=== PATIENT | female | born 1970 | race Hispanic/Latino ===

== ENCOUNTER 2020-06-11 14:46 | Inpatient (IN) | payer OTHER ==
[~2020-06-11] VITALS: Ht 170.2 cm; Wt 104.3 kg
[~2020-06-11 14:46] MED LIST: IRON27 MG PO; OMECLAMOX-PAK1 EACH
--- NOTE | 2020-06-11 15:28 | Emergency Department Note ---
History of Present Illnes History of Present Illness Chief Complaint: Abdominal Complaints History of Present Illness This is a 50 year old female arrived to the ED for several weeks of abdominal pain and diarrhea.. Chief Complaint Comment PATIENT IN FROM HOME WITH COMPLAINTS OF EPIGASTRIC PAIN, NAUSEA, AND DIARRHEA FOR SEVERAL WEEKS. PATIENT STATES SHE WAS SEEN AT [facility] 2 DAYS AGO AND HAD LABS AND XRAYS AND EVERYTHING WAS NORMAL. STATES MD TOLD HER SHE HAS IBS. PATIENT HAD AN EGD 3 WEEKS AGO AND TOLD SHE HAD A HIATAL HERNIA. PATIENT HAS NOT MEDICATED FOR THE DIARRHEA. PATIENT ALERT AND ORIENTED, RESP EVEN AND NONLABORED, APPEARS IN NO DISTRESS, AMBULATORY WITHOUT ASSISTANCE Historian: Patient Arrival Mode: Car Onset (how long ago): day(s) Onset quality: gradual Duration (how long): day(s) Timing of current episode: constant Progression: worsening Chronicity: new Associated symptoms: Reports nausea/vomiting Past Medical/Family History Physician Review I have reviewed the patient's past medical and family history. Any updates have been documented here. Past Medical History Recent Fever: Yes Clinical Suspicion of Infectio: No New/Unexplained Change in Ment: No Other Medical History: H.pylori Other Last Tetanus: 8 YEARS AGO Review of Systems Review of Systems Constitutional: Reports no symptoms EENTM: Reports no symptoms Cardiovascular: Reports no symptoms Respiratory: Reports no symptoms Gastrointestinal: Reports as per HPI, Reports abdominal pain, Reports nausea, Reports vomiting Genitourinary: Reports no symptoms Musculoskeletal: Reports no symptoms Integumentary: Reports no symptoms Neurological: Reports no symptoms Psychological: Reports no symptoms Endocrine: Reports no symptoms Hematological/Lymphatic: Reports no symptoms Physical Exam Related Data Allergies: Coded Allergies: No Known Allergies (Verified , 11/26/09) Triage Vital Signs Vital Signs Date Time Temp Pulse Resp B/P (MAP) Pulse Ox O2 Delivery O2 Flow Rate FiO2 06/11/20 14:57 99.1 83 20 122/94 100 Room Air Vital signs reviewed: Yes Physical Exam CONSTITUTIONAL Constitutional: Present well-developed, Present well-nourished HENT HENT: Present normocephalic, Present atraumatic, Present oropharynx clear/moist, Present nose normal HENT L/R: Present left ext ear normal, Present right ext ear normal EYES Eyes: Reports PERRL, Reports conjunctivae normal NECK Neck: Present ROM normal PULMONARY Pulmonary: Present effort normal, Present breath sounds normal CARDIOVASCULAR Cardiovascular: Present regular rhythm, Present heart sounds normal, Present capillary refill normal, Present normal rate GASTROINTESTINAL Abdominal: Present soft, Present bowel sounds normal, Present tender GENITOURINARY Genitourinary: Present exam deferred SKIN Skin: Present warm, Present dry MUSCULOSKELETAL Musculoskeletal: Present ROM normal NEUROLOGICAL Neurological: Present alert, Present oriented x 3, Present no gross motor or sensory deficits PSYCHOLOGICAL Psychological: Present mood/affect normal, Present judgement normal Results Laboratory Lab results reviewed: Yes Laboratory comments Laboratory Tests Test 06/11/20 15:20 06/11/20 15:03 White Blood Count 3.19 x10e3/uL (4.8-10.8) Red Blood Count 4.69 x10e6/uL (3.6-5.1) Hemoglobin 11.3 g/dL (12.0-16.0) Hematocrit 36.4 % (34.2-44.1) Mean Corpuscular Volume 77.6 fL (81-99) Mean Corpuscular Hemoglobin 24.1 pg (28-32) Mean Corpuscular Hemoglobin Concent 31.0 g/dL (31-35) Red Cell Distribution Width 15.2 % (11.7-14.4) Platelet Count 294 x10e3/uL (140-360) Neutrophils (%) (Auto) 54.2 % (38.7-80.0) Lymphocytes (%) (Auto) 33.9 % (18.0-39.1) Monocytes (%) (Auto) 11.3 % (4.4-11.3) Eosinophils (%) (Auto) 0.3 % (0.0-6.0) Basophils (%) (Auto) 0.3 % (0.0-1.0) Neutrophils # (Auto) 1.7 (2.1-6.9) Lymphocytes # (Auto) 1.1 (1.0-3.2) Monocytes # (Auto) 0.4 (0.2-0.8) Eosinophils # (Auto) 0.0 (0.0-0.4) Basophils # (Auto) 0.0 (0.0-0.1) Absolute Immature Granulocyte (auto 0 x10e3/uL (0-0.1) Sodium Level 138 mmol/L (136-145) Potassium Level 3.8 mmol/L (3.5-5.1) Chloride Level 99 mmol/L (98-107) Carbon Dioxide Level 26 mmol/L (22-29) Anion Gap 16.8 mmol/L (8-16) Blood Urea Nitrogen 8 mg/dL (7-26) Creatinine 0.84 mg/dL (0.57-1.11) Estimat Glomerular Filtration Rate > 60 ML/MIN (60-) BUN/Creatinine Ratio 10 (6-25) Glucose Level 85 mg/dL (74-118) Calcium Level 8.0 mg/dL (8.4-10.2) Total Bilirubin 0.4 mg/dL (0.2-1.2) Aspartate Amino Transf (AST/SGOT) 31 IU/L (5-34) Alanine Aminotransferase (ALT/SGPT) 20 IU/L (0-55) Alkaline Phosphatase 111 IU/L (40-150) Creatine Kinase 138 IU/L (29-168) Creatine Kinase MB 0.50 ng/mL (0-5.0) Troponin I 0.002 ng/mL (0-0.300) Total Protein 7.7 g/dL (6.5-8.1) Albumin 3.4 g/dL (3.5-5.0) Globulin 4.3 g/dL (2.3-3.5) Albumin/Globulin Ratio 0.8 (0.8-2.0) Lipase 13 U/L (8-78) Urine Color Yellow (YELLOW) Urine Clarity Clear (CLEAR) Urine pH 6 (5 - 7) Urine Specific [place] 1.020 (1.010-1.025) Urine Protein Negative (NEGATIVE) Urine Glucose (UA) Negative (NEGATIVE) Urine Ketones 2+ (NEGATIVE) Urine Blood Negative (NEGATIVE) Urine Nitrite Negative (NEGATIVE) Urine Bilirubin Small (NEGATIVE) Urine Urobilinogen 0.2 mg/dL (0.2 - 1) Urine Leukocyte Esterase Negative (NEGATIVE) Urine RBC 0-5 /HPF (0-5) Urine WBC 0-5 /HPF (0-5) Urine Epithelial Cells Few /LPF (NONE) Urine Bacteria Rare /HPF (NONE) Urine Opiates Screen Negative (NEGATIVE) Urine Methadone Screen Negative (NEGATIVE) Urine Barbiturates Screen Negative (NEGATIVE) Urine Phencyclidine Screen Negative (NEGATIVE) Urine Amphetamines Screen Negative (NEGATIVE) Urine Methamphetamines Screen Negative (NEGATIVE) Urine Benzodiazepines Screen Negative (NEGATIVE) Urine Cocaine Screen Negative (NEGATIVE) Urine Cannabinoids Screen Negative (NEGATIVE) Imaging Imaging results reviewed: Yes Impressions IMPRESSION: 1. Patchy airspace opacities in the right lung base compatible with multifocal pneumonia. 2. No acute abdominopelvic abnormality identified. Signed by: Van Laws MD on 06/11/2020 5:16 PM Assessment & Plan Medical Decision Making MDM 50 yo F arrived to the ED with complaints of epigastric abdominal pain and inability to tolerate oral intake. Pt admitted for GI evaluation and monitoring. Assessment & Plan Final Impression: (1) Intractable vomiting (2) Pneumonia Last Vital Signs Date Time Temp Pulse Resp B/P (MAP) Pulse Ox O2 Delivery O2 Flow Rate FiO2 06/11/20 14:57 99.1 83 20 122/94 100 Room Air Home Meds Reported Medications Omeprazole/Clarith/Amoxicillin (OMECLAMOX-JACQUE COMBO PACK) 1 Each Combo..pkg 03/06/15 AYAD GRESHAM DO Jun 11, 2020 15:28
[2020-06-11 15:41] LABS: BASOPHILS % 0.3 % (0.0-1.0); EOSINOPHILS % 0.3 % (0.0-6.0); HEMATOCRIT 36.4 % (34.2-44.1); HEMOGLOBIN 11.3 g/dL (12.0-16.0); LYMPHOCYTES # (AUTO) 1.1 (1.0-3.2); LYMPHOCYTES % 33.9 % (18.0-39.1); MEAN CORPUSCULAR HEMOGLOBIN 24.1 pg (28-32); MEAN CORPUSCULAR VOLUME 77.6 fL (81-99); MONOCYTES # (AUTO) 0.4 (0.2-0.8); MONOCYTES % 11.3 % (4.4-11.3); NEUTROPHILS # (AUTO) 1.7 (2.1-6.9); NEUTROPHILS % 54.2 % (38.7-80.0); PLATELET COUNT 294 x10e3/uL (140-360); RED BLOOD COUNT 4.69 x10e6/uL (3.6-5.1); RED CELL DISTRIBUTION WIDTH 15.2 % (11.7-14.4)
--- OUTSIDE RECORDS SUMMARY | 2020-06-11 15:55 | XMS REPORT | Continuity of Care Document ---
Author Author [facility] t Organization [facility] Address [address] [place] [address] Phone Unavailable Care Team Providers Care Credit Portfolio Manager Name Role Phone Asked, Pcp No PCP Unavailable Killian Ozuna MD Payers Payer Name Policy Type Policy Number Effective Date Expiration Date S ource DEPT OF AFFAIRSDEPT OF AFFAIRSxxxxxxxxxx2020-PresentMilitary xxxxxxxxxx 2020 00:00:00 Otis Palmer Problems This patient has no known problems. Allergies, Adverse Reactions, Alerts This patient has no known allergies or adverse reactions. Social History Social Habit Start Date Stop Date Quantity Comments Source Sex Assigned At Pau kellogg Yazidi Medications This patient has no known medications. Vital Signs Vital Name Observation Time Observation Value Comments Source Body temperature 2020-06-09 17:02:00 37.33 Violeta Gay Palmer Systolic blood pressure 2020-06-09 15:47:00 132 mm[Hg] Otis Palmer Diastolic blood pressure 2020-06-09 15:47:00 74 mm[Hg] Otis Palmer Heart rate 2020-06-09 15:47:00 104 /min Otis Palmer Respiratory rate 2020-06-09 15:47:00 17 /min Gay Palmer Oxygen saturation in Arterial blood by Pulse oximetry 06-09 15:47:00 98 /min Otis Palmer Procedures Procedure Date / Time Performed Performing Clinician [facility] e CT ABDOMEN PELVIS WO CONTRAST 2020-06-09 14:47:50 Lupis Ozuna XR CHEST 1 VW PORTABLE 2020-06-09 13:11:15 Killian Ozuna ECG 12-LEAD 2020-06-09 12:59:12 Killian Ozuna HC COMPLETE BLD COUNT W/AUTO DIFF 2020-06-09 12:45:00 Anna Ozuna PROTHROMBIN TIME WITH INR 2020-06-09 12:45:00 Killian Ozuna PARTIAL THROMBOPLASTIN TIME (PTT) 2020-06-09 12:45:00 Anna Ozuna TROPONIN 2020-06-09 12:45:00 Killian Ozuna Met dorian B NATRIURETIC PEPTIDE 2020-06-09 12:45:00 Killian Ozuna on Yazidi LIPASE LEVEL 2020-06-09 12:45:00 Killian Ozuna Met dorian COMPREHENSIVE METABOLIC PANEL 2020-06-09 12:19:00 Lupis Ozuna ESTIMATED GFR 2020-06-09 12:19:00 Killian Ozuna Met dorian ECG ED PRELIMINARY INTERPRETATION 2020-06-09 12:07:40 Anna Ozuna Plan of Care Planned Activity Planned Date Details Comments Source Future Scheduled Test 2020-07-13 00:00:00 INFLUENZA VACCINE [code = INFLUENZA VACCINE] Otis Palmer Future Scheduled Test 1992 00:00:00 Screening for loreta gnant neoplasm of cervix (procedure) [code = 017104320] Otis womack Encounters Start Date/Time End Date/Time Encounter Type Admission Type Att[facility] Care Department Encounter ID Source 2020-06-09 00:00:00 2020-06-09 00:00:00 Emergency LUPIS OZUNA [facility] [id number] Otis Palmer Results Test Description Test Time Test Comments Results Result Comments Source ECG 12 lead 2020-06-09 20:16:38 Test Item Ventricular rate (test code = 253) 84 Atrial rate (test code = 255) 84 CO interval (test code = 266) 174 QRSD interval (test code = 260) 84 QT interval (test code = 264) 360 QTC interval (test code = 265) 425 P axis 1 (test code = 267) 66 QRS axis 1 (test code = 268) 15 T wave axis (test code = 270) 27 EKG impression (test code = 273) Normal sinus rhythm-N ormal ECG-No previous ECGs available- [facility] Abdomen Pelvis Wo [id number] 14:56:14Hm Interface, Radiology Results 06/09/2020 2:59 PM CDTEXAMINATION: CT ABDOMEN PELVIS WO CONTRASTCLINICAL HISTORY: Abd pain unspecifiedTECHNIQUE: Multiple axial images of the abdomen and pelvis were obtained without intravenous administration of iodinated contrast. Sagittal and coronal computerized reform atted images were also obtained. The lack of intravenous contrast reduces the se nsitivity of detecting solid organ disease.CT imaging was performed with iterati ve reconstruction techniques and/or automated exposure control to reduce radiati on dose.COMPARISON: 03/10/2015FINDINGS:1.Ill-defined nodular and groundglass clu stered opacities in the right lower lobe are most likely mild localized bronchio litis.2.The unenhanced liver, spleen, pancreas, and adrenals are normal. The gal lbladder is absent.3.A multilobulated 4.1 x 3.2 cm right renal mass is minimally larger in the interval and is most compatible with a mildly complex cyst. The l eft kidney is normal. There is no hydronephrosis or nephrolithiasis. Urinary jose a dder is empty but otherwise normal.4.The uterus and adnexa are unremarkable.5.No small or large bowel obstruction or inflammation is seen. A mobile cecum is dis placed in the left upper abdominal quadrant. The appendix is not definitely seen , but there are no inflammatory changes near the cecum. Stomach is normal.6.Ther e is no ascites or lymphadenopathy.7.No significant skeletal abnormality is seen .IMPRESSION:1.No acute abnormality in the abdomen or pelvis.2.Mild right lower l obe bronchiolitis. Recommend 2-3 month follow-up chest CT.3.Mild interval enlarg ement of a right renal mass, most likely a mildly hyperdense cyst. A follow-up r enal ultrasound or renal mass protocol CT can be obtained for confirmation.[facility]-2 [id number] MethodistB natriuretic [id number] 14:15:00* Test Item Value Reference Range Interpretation Comments BNP (test code = 81090-7) 13 pg/mL 0-100 [place] MethodistProthrombin time with [id number] 14:09:18* Test Item Value Reference Range Interpretation Comments Prothrombin time (test code = 5902-2) 15.0 11.5- 14.5 sec H INR (test code = 05172-3) 1.2 Th e International Normalized Ratio (INR) is a therapeutic monitoring tool for patients who are stable on oral anticoagulant therapy. An INR of 2.0-3.0 is suggested for deep vein thrombosis/pulmonary embolism. Lab Interpretation (test code = 33410-8) Abnormal [facility] MethodistComprehensive metabolic [id number] 13:57:43* Test Item Value Reference Range Interpretation Comments Sodium (test code = 2951-2) 138 135- 148 mEq/L Potassium (test code = 2823-3) 4.0 3.5- 5.0 mEq/L Chloride (test code = 5-0) 100 98- 112 mEq/L CO2 (test code = 2027-9) 24 24- 31 mEq/L Anion gap (test code = 31388-1) 14@ANIO 7- 15 mEq/L BUN (test code = 3094-0) 9 mg/dL 6-20 Creatinine (test code = 2160-0) 0.97 mg/dL 0.5-0.9 H Glucose (test code = 2345-7) 90 mg/dL 65-99 Calcium (test code = 93143-8) 8.3 mg/dL 8.3-10.2 Protein (test code = 2885-2) 8.0 g/dL 6.3-8.3 -[place] 4.6- 7.0 g/dL1 week 4.4-7.6 g/dL7 months-1year 5.1-7.3 g/dL1-2 years 5.6-7.5 g/dL>3 years 6.0-8.0 g/cH19-477 6.3-8.3 g/dL Albumin (test code = 1751-7) 3.3 g/dL 3.5-5 L A/G ratio (test code = 1759-0) 0.7 0.7-3.8 Alkaline phosphatase (test code = 6768-6) 115 U/L 35-104 H AST (test code = 1920-8) 38 U/L 10-35 H ALT (test code = 1742-6) 23 U/L 5-50 Total bilirubin (test code = 1974-) 0.4 mg/dL 0-1.2 Lab Interpretation (test code = 26563-7) Abnormal Ot[facility] MethodistEstimated [id number] 13:57:43* Test Item Value Reference Range Interpretation Comments Estimated GFR (test code = 5488) 68 mL/min/1.73 m2 Catergory Units InterpretationG1 >=90 Normal or highG2 60-89 Mildly mufgtklsmQ7t 45-59 Mildly to moderately qllfjaahnI8j 30-44 Moderately to severely decreasedG4 15-29 Severely decreasedG5 <15 Kidney failureThe eGFR was calculated using the Chronic Kidney Disease Epidemiology Collaboration (CKD-EPI) equation. Interpretation is based on recommendations of the National Kidney Foundation-Kidney Disease Outcomes Quality Initiative (NKF-KDOQI) published in 2014. Otis PalmerLnxxkincwNkxkzdyg9910-42-63 13:44:45* Test Item Value Reference Range Interpretation Comments Troponin (test code = 98151-9) <0.006 0-0.04 In patients suspected of having a myocardial infarction, along with all other appropriate clinical measures and actions including ECG and other diagnostics as appropriate, measure Ultra TnI at 0 hrs and at 3 hrs.Myocardial infarction VERY LIKELYThe 0 hr TnI level is > 0.10 ng/mL Jose cardial infarction LIKELYThe 0 hr TnI level is > 0.04 ng/mL and 3 hr level is increased or decreased by at least 0.020 ng/mL Myocardi al infarction VERY UNLIKELYBoth the 0 hr and 3 hr TnI levels <= 0.04 ng/mL(within normal limits) OR 0 hr is > 0.04 ng/mL and 3 hr is increased OR decreased by less than 0.020 ng/mL [place] MethodistPartial thromboplastin time, [id number] 13:43:27* Test Item Value Reference Range Interpretation Comments PTT (test code = 22657-2) 34.8 23.0- 36.0 sec PTT therapeutic range for unfractionated heparin is61.0-112.0 seconds which corresponds to Anti-Xa0.3-0.7 U/ml. [place] MethodistLipase [id number] 13:31:26* Test Item Value Reference Range Interpretation Comments Lipase (test code = 3040-3) 21 U/L 13-60 [place] MethodistCBC with platelet and [id number] 13:22:50* Test Item Value Reference Range Interpretation Comments WBC (test code = 83133-1) 4.14 4.50- 11.00 k/uL L RBC (test code = 46247-3) 4.36 m/uL 4.2-5.5 HGB (test code = 718-7) 10.8 g/dL 12-16 L HCT (test code = 4544-3) 34.4 % 37-47 L MCV (test code = 787-2) 78.9 fL 82-100 L MCH (test code = 785-6) 24.8 pg 27-34 L MCHC (test code = 786-4) 31.4 g/dL 31-37 RDW - SD (test code = 17199-0) 43.8 fL 37-55 MPV (test code = 62841-5) 9.7 fL 8.8-13.2 Platelet count (test code = 02221-6) 303 150- 400 k/uL Nucleated RBC (test code = 10104-6) 0.00 /100 WBC Neutrophils (test code = 77209-5) 72.5 % 39-69 H Lymphocytes (test code = 68798-3) 16.2 % 25-45 L Monocytes (test code = 95972-0) 10.9 % 0-10 H Eosinophils (test code = 91701-4) 0.0 % 0-5 Basophils (test code = 86673-0) 0.2 % 0-1 Immature granulocytes (test code = 81928-3) 0.2 % 0-1 "Immature granulocytes" (promyelocytes, myelocytes, metamyelocytes) Lab Interpretation (test code = 48788-7) Abnormal [facility] MethodistXR Chest 1 Vw [id number] 13:22:50Hm Interface, Radiology Results 06/09/2020 1:25 PM CDTEXAMINATION: XR CHEST 1 VW PORTABLECLINICAL HISTORY: 50 years Female chest painCOMPARISON: None.IMPRESSION:Lines and tubes: None.Heart and mediastinum: Cardiomediastinal silhouette is normal in contour.Lungs and pleura: There is no focal airspace dis ease, pleural effusion or pneumothorax.Bones: No acute abnormality.[facility]-[id number] 4Dictated and approved by microarray operations vice president/fellow: Saúl Mahmood M.D.I, Kayla Mohr MD, personally reviewed the images and resident's/fellow's findings and agree with the final report.[facility] [place] Interpretation - Not an [id number] 12:07:40ShiKillian jones MD 06/10/2020 6:58 [facility] [place] [facility] Preliminary Interpretation - Not an OrderPerformed by: Killian Ozuna MDAuthorized by: Killian Ozuna MD ECG reviewed by ED Physician in the absence of a nuclear criticality safety engineer: yes Interpretation: Interpretation: normal Rate: ECG rate: 84 ECG rate assessment: normal Rhythm: Rhythm: sinus rhythm Ectopy: Ectopy: none QRS: QRS axis: Normal QRS intervals: NormalConduction: Conduction: normal ST segments: ST segments: NormalT waves: T waves: normal Otis Palmer
--- OUTSIDE RECORDS SUMMARY | 2020-06-11 15:55 | XMS REPORT | Clinical Summary ---
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 Last Filed Vital Signs Reading Time Taken Comments Vital Sign 132/74 06/09/2020 3:47 PM CDT Blood Pressure 104 06/09/2020 3:47 PM CDT Pulse 37.3 C (99.2 F) 06/09/2020 5:02 PM CDT Temperature 17 06/09/2020 3:47 PM CDT Respiratory Rate 98% 06/09/2020 3:47 PM CDT Oxygen Saturation - - Inhaled Oxygen Concentration - - Weight - - Height - - Body Mass Index Plan of Treatment Health Maintenance Due Date Last Done Comments CERVICAL CANCER SCREENING 1992 INFLUENZA VACCINE 07/13/2020 Procedures Comments Procedure Name Priority Date/Time Associated Diag nosis CT ABDOMEN PELVIS WO STAT 06/09/2020 CONTRAST 2:47 PM CDT XR CHEST 1 VW PORTABLE STAT 06/09/2020 1:11 PM CDT ECG 12-LEAD STAT 06/09/2020 12:59 PM CDT LIPASE LEVEL Routine 06/09/2020 12:45 PM CDT B NATRIURETIC PEPTIDE Routine 06/09/2020 12:45 PM CDT TROPONIN Routine 06/09/2020 12:45 PM CDT PARTIAL THROMBOPLASTIN Routine 06/09/2020 TIME (PTT) 12:45 PM CDT PROTHROMBIN TIME WITH INR Routine 06/09/2020 12:45 PM CDT HC COMPLETE BLD COUNT Routine 06/09/2020 W/AUTO DIFF 12:45 PM CDT ESTIMATED GFR Routine 06/09/2020 12:19 PM CDT COMPREHENSIVE METABOLIC Routine 06/09/2020 PANEL 12:19 PM CDT ECG ED PRELIMINARY Routine 06/09/2020 INTERPRETATION 12:07 PM CDT after 06/11/2019 Results * CT Abdomen Pelvis Wo Contrast (06/09/2020 2:47 PM CDT) Specimen Narrative Performed At EXAMINATION: CT ABDOMEN PELVIS WO CONTRAST [facility] CLINICAL HISTORY: Abd pain unspecif ied TECHNIQUE: Multiple axial images of the abdomen and pelvis were obtained without intravenous administration of iodinated contrast. Sagittal and coronal computerized reformatted images were al so obtained. The lack of intravenous contrast reduces the sensitivity of detecting solid organ di sease. CT imaging was performed with iterative reconstruction techniques and/or automated exposure control to reduce ra diation dose. COMPARISON: 03/10/2015 FINDINGS: 1.Ill-defined nodular and groundglass c lustered opacities in the right lower lobe are most likely mild localized bro nchiolitis. 2.The unenhanced liver, spleen, pancrea s, and adrenals are normal. The gallbladder is absent. 3.A multilobulated 4.1 x 3.2 cm right r enal mass is minimally larger in the interval and is most compatible with a mildly complex cyst. The left kidney is normal. There is no hydronephrosis or n ephrolithiasis. Urinary bladder is empty but otherwise normal. 4.The uterus and adnexa are unremarkabl e. 5.No small or large bowel obstruction o r inflammation is seen. A mobile cecum is displaced in the left upper abdominal q uadrant. The appendix is not definitely seen, but there are no inflammatory onel nges near the cecum. Stomach is normal. 6.There is no ascites or lymphadenopath y. 7.No significant skeletal abnormality i s seen. IMPRESSION: 1.No acute abnormality in the abdomen o r pelvis. 2.Mild right lower lobe bronchiolitis. Recommend 2-3 month follow-up chest CT. 3.Mild interval enlargement of a right renal mass, most likely a mildly hyperdense cyst. A follow-up renal ultr asound or renal mass protocol CT can be obtained for confirmation. [facility]-[id number] Procedure Note Hm Interface, Radiology Results Incoming - 06/09/2020 2:59 PM CDT EXAMINATION: CT ABDOMEN PELVIS WO CONTRAST CLINICAL HISTORY: Abd pain unspecified TECHNIQUE: Multiple axial images of the abdomen and pelvis were obtained without intravenous administration of iodinated contrast. Sagittal and coronal computerized reformatted images were also obtained. The lack of intravenous contrast reduces the sensitivity of detecting solid organ disease. CT imaging was performed with iterative reconstruction techniques and/or automated exposure control to reduce radiation dose. COMPARISON: 03/10/2015 FINDINGS: 1.Ill-defined nodular and groundglass cl ustered opacities in the right lower lobe are most likely mild localized bronchiolitis. 2.The unenhanced liver, spleen, pancreas , and adrenals are normal. The gallbladder is absent. 3.A multilobulated 4.1 x 3.2 cm right re nal mass is minimally larger in the interval and is most compatible with a mildly complex cyst. The left kidney is normal. There is no hydronephrosis or nephrolithiasis. Urinary bladder is empty but otherwise normal. 4.The uterus and adnexa are unremarkable . 5.No small or large bowel obstruction or inflammation is seen. A mobile cecum is displaced in the left upper abdominal quadrant. The appendix is not definitely seen, but there are no inflammatory changes near the cecum. Stomach is normal. 6.There is no ascites or lymphadenopathy . 7.No significant skeletal abnormality is seen. IMPRESSION: 1.No acute abnormality in the abdomen or pelvis. 2.Mild right lower lobe bronchiolitis. R ecommend 2-3 month follow-up chest CT. 3.Mild interval enlargement of a right r enal mass, most likely a mildly hyperdense cyst. A follow-up renal ultrasound or renal mass protocol CT can be obtained for confirmation. [facility]-[id number] Performing Organization Address City/State/Zipcode Ph one Number [facility] [address] [place] [address] * XR Chest 1 Vw Portable (06/09/2020 1:11 PM CDT) Specimen Narrative Performed At EXAMINATION: XR CHEST 1 VW PORTABLE [facility] CLINICAL HISTORY: 50 years Female ch est pain COMPARISON: None. IMPRESSION: Lines and tubes: None. Heart and mediastinum: Cardiomediastina l silhouette is normal in contour. Lungs and pleura: There is no focal air space disease, pleural effusion or pneumothorax. Bones: No acute abnormality. [id number] Dictated and approved by radiology resi dent/fellow: Saúl Mahmood M.D. I, Kayla Mohr MD, personally reviewed the images and resident's/fellow's findings and agree with the final repor t. Procedure Note Interface, Radiology Results Incoming - 06/09/2020 1:25 PM CDT EXAMINATION: XR CHEST 1 VW PORTABLE CLINICAL HISTORY: 50 years Female chest pain COMPARISON: None. IMPRESSION: Lines and tubes: None. Heart and mediastinum: Cardiomediastinal silhouette is normal in contour. Lungs and pleura: There is no focal airspace disease, pleural effusion or pneumothorax. Bones: No acute abnormality. [facility]-[id number] Dictated and approved by residential roofer helper/fellow: Saúl Mahmood M.D. I, Kayla Mohr MD, personally reviewed the images and resident's/fellow's findings and agree with the final report. Performing Organization Address City/[facility] Ph one Number [facility] [address] [place] [address] * ECG 12 lead (06/09/2020 12:59 PM CDT) Ventricular 84 [facility] rate Atrial rate 84 [facility] MN interval 174 [facility] QRSD interval 84 [facility] QT interval 360 [facility] QTC interval 425 [facility] P axis 1 66 [facility] QRS axis 1 15 [facility] T wave axis 27 [facility] EKG impression Normal sinus rhythm-Normal [facility] ECG-No previous ECGs available- Specimen Narrative Performed At This result has an attachment that is n ot available. Performing Organization Address City/State/Zipcode Ph one Number [facility] [address] [place] [id number] * Troponin (06/09/2020 12:45 PM CDT) Pathologist [facility] Troponin <0.006 0.000 - 0.040 ng/mL [place] Comment: UATSDIN In patients suspected of HOSPITAL having a myocardial infarction, along with all other appropriate clinical measures and actions including ECG and other diagnostics as appropriate, measure Ultra TnI at 0 hrs and at 3 hrs. Myocardial infarction VERY LIKELY The 0 hr TnI level is > 0.10 ng/mL Myocardial infarction LIKELY The 0 hr TnI level is > 0.04 ng/mL and 3 hr level is increased or decreased by at least 0.020 ng/mL Myocardial infarction VERY UNLIKELY Both the 0 hr and 3 hr TnI levels <= 0.04 ng/mL(within normal limits) OR 0 hr is > 0.04 ng/mL and 3 hr is increased OR decreased by less than 0.020 ng/mL Specimen Blood Performing Organization Address [facility] Ph one Number [facility] DEPARTMENT OF [address] [place] [address] PATHOLOGY AND GENOMIC MEDICINE [place] UAT[facility]IN [address] [place] [address] HOSPITAL * Partial thromboplastin time, activated (06/09/2020 12:45 PM CDT) Pathologist [facility] PTT 34.8 23.0 - 36.0 sec [place] Comment: UATSDIN PTT therapeutic range for HOSPITAL unfractionated heparin is 61.0-112.0 seconds which corresponds to Anti-Xa 0.3-0.7 U/ml. Specimen Blood Performing Organization Address [facility] Ph one Number [facility] DEPARTMENT OF [address] [place] [address] PATHOLOGY AND GENOMIC MEDICINE [address] * Prothrombin time with INR (06/09/2020 12:45 PM CDT) [facility] Prothrombin 15.0 (H) 11.5 - 14.5 sec [facility] INR 1.2 [place] Comment: UATSDIN The International Normalized HOSPITAL Ratio (INR) is a therapeutic monitoring tool for patients who are stable on oral anticoagulant therapy. An INR of 2.0-3.0 is suggested for deep vein thrombosis/pulmonary embolism. Specimen Blood Performing Organization Address City/State/Zipcode Ph one Number [facility] DEPARTMENT OF [address] [place] [address] PATHOLOGY AND GENOMIC MEDICINE [address] * CBC with platelet and differential (06/09/2020 12:45 PM CDT) [facility] WBC 4.14 (L) 4.50 - 11.00 k/uL [facility] RBC 4.36 4.20 - 5.50 m/uL [facility] HGB 10.8 (L) 12.0 - 16.0 g/dL [facility] HCT 34.4 (L) 37.0 - 47.0 % [facility] MCV 78.9 (L) 82.0 - 100.0 fL [facility] MCH 24.8 (L) 27.0 - 34.0 pg [facility] MCHC 31.4 31.0 - 37.0 g/dL [facility] RDW - SD 43.8 37.0 - 55.0 fL [facility] MPV 9.7 8.8 - 13.2 fL [facility] Platelet count 303 150 - 400 k/uL [facility] Nucleated RBC 0.00 /100 WBC [facility] Neutrophils 72.5 (H) 39.0 - 69.0 % [facility] Lymphocytes 16.2 (L) 25.0 - 45.0 % [facility] Monocytes 10.9 (H) 0.0 - 10.0 % [facility] Eosinophils 0.0 0.0 - 5.0 % [facility] Basophils 0.2 0.0 - 1.0 % [facility] Immature 0.2Comment: "Immature 0.0 - 1.0 % [place] granulocytes granulocytes" (promyelocytes, METHOD IST myelocytes, metamyelocytes) HOSPITAL Specimen Blood Performing Organization Address [facility] one Number [facility] DEPARTMENT OF [address] [place] [address] PATHOLOGY AND GENOMIC MEDICINE [address] * B natriuretic peptide (06/09/2020 12:45 PM CDT) Pathologist [facility] BNP 13 0 - 100 pg/mL [facility] Specimen Blood Performing Organization Address [facility] one Number [facility] DEPARTMENT OF [address] [place] [address] PATHOLOGY AND GENOMIC MEDICINE [address] * Lipase level (06/09/2020 12:45 PM CDT) Pathologist [facility] Lipase 21 13 - 60 U/L [facility] Specimen Performing Organization Address [facility] one Number [facility] [place] [place] [address] PATHOLOGY AND GENOMIC MEDICINE [address] * Estimated GFR (06/09/2020 12:19 PM CDT) Pathologist [facility] Estimated GFR 68 mL/min/1.73 m2 [place] Comment: [facility] Interpretation G1 >=90 Normal or high G2 60-89 Mildly decreased G3a 45-59 Mildly to moderately decreased G3b 30-44 Moderately to severely decreased G4 15-29 Severely decreased G5 <15 Kidney failure The eGFR was calculated using the Chronic Kidney Disease Epidemiology Collaboration (CKD-EPI) equation. Interpretation is based on recommendations of the National Kidney Foundation-Kidney Disease Outcomes Quality Initiative (NKF-KDOQI) published in 2014. Specimen Performing Organization Address [facility] one Number [facility] DEPARTMENT OF [address] [place] [address] PATHOLOGY AND GENOMIC MEDICINE [address] * Comprehensive metabolic panel (06/09/2020 12:19 PM CDT) [facility] Sodium 138 135 - 148 mEq/L [facility] Potassium 4.0 3.5 - 5.0 mEq/L [facility] Chloride 100 98 - 112 mEq/L [facility] CO2 24 24 - 31 mEq/L [facility] Anion gap 14@ANIO 7 - 15 mEq/L [facility] BUN 9 6 - 20 mg/dL [facility] Creatinine 0.97 (H) 0.50 - 0.90 mg/dL [facility] Glucose 90 65 - 99 mg/dL [facility] Calcium 8.3 8.3 - 10.2 mg/dL [facility] Protein 8.0 6.3 - 8.3 g/dL [place] Comment: [facility] 4.6-7.0 g/dL 1 week 4.4-7.6 g/dL 7 months-1year 5.1-7.3 g/dL 1-2 years 5.6-7.5 g/dL >3 years 6.0-8.0 g/dL 18-150 6.3-8.3 g/dL Albumin 3.3 (L) 3.5 - 5.0 g/dL [facility] A/G ratio 0.7 0.7 - 3.8 [facility] Alkaline 115 (H) 35 - 104 U/L [place] phosphatase [facility] AST 38 (H) 10 - 35 U/L [facility] ALT 23 5 - 50 U/L [facility] Total bilirubin 0.4 0.0 - 1.2 mg/dL [facility] Specimen Blood Performing Organization Address City/State/[facility] Ph one Number [facility] DEPARTMENT OF [address] [place] [address] PATHOLOGY AND GENOMIC MEDICINE [address] * ECG ED Preliminary Interpretation - Not an Order (06/09/2020 12:07 PM CDT) Narrative Performed At Killian Arteaga MD 06/10/2020 6:58 PM ECG ED Preliminary Interpretation - Not an Order Performed by: Killian Aretaga MD Authorized by: Killian Arteaga MD ECG reviewed by ED Physician in the abs ence of a barber shop operator: yes Interpretation: Interpretation: normal Rate: ECG rate: 84 ECG rate assessment: normal Rhythm: Rhythm: sinus rhythm Ectopy: Ectopy: none QRS: QRS axis: Normal QRS intervals: Normal Conduction: Conduction: normal ST segments: ST segments: Normal T waves: T waves: normal after 06/11/2019 Insurance Type Payer Benefit Subscriber ID Effective Phone Address Plan / Dates Group DEPT OF AFFAIRS DEPT OF xxxxxxxxxx [id number] Present AFFAIRS [id number] [facility] (Home) [place], [place] [address] Advance Directives For more information, please contact: [phone] Patient Medical Payment Poster Explanation Type Date Recorded Advance Directives, Living Will and Medical Power of Burial Needs Salesperson
[2020-06-11 15:57] LABS: ALANINE AMINOTRANSFERASE 20 IU/L (0-55); ALBUMIN 3.4 g/dL (3.5-5.0); ALBUMIN/GLOBULIN RATIO 0.8 (0.8-2.0); ALKALINE PHOSPHATASE 111 IU/L (40-150); ANION GAP 16.8 mmol/L (8-16); BLOOD UREA NITROGEN 8 mg/dL (7-26); BUN/CREATININE RATIO 10 (6-25); CARBON DIOXIDE 26 mmol/L (22-29); CHLORIDE 99 mmol/L (98-107); CREATINE KINASE 138 IU/L (29-168); CREATININE, SERUM 0.84 mg/dL (0.57-1.11); EST GLOMERULAR FILTRATION RATE > 60 ML/MIN (60-); GLUCOSE 85 mg/dL (74-118); POTASSIUM 3.8 mmol/L (3.5-5.1); SODIUM 138 mmol/L (136-145)
[2020-06-11 15:58] LABS: CLARITY,URINE CLEAR (CLEAR); COLOR,URINE YELLOW (YELLOW)
[2020-06-11 15:59] LABS: AMPHETAMINES SCREEN,URINE NEGATIVE (NEGATIVE); BENZODIAZEPINES SCREEN,URINE NEGATIVE (NEGATIVE); KETONES,URINE 2+ (NEGATIVE); LEUKOCYTE ESTERASE ,URINE NEGATIVE (NEGATIVE); NITRITE,URINE NEGATIVE (NEGATIVE); PHENCYCLIDINE SCREEN,URINE NEGATIVE (NEGATIVE); PROTEIN,URINE DIPSTICK NEGATIVE (NEGATIVE)
[2020-06-11 16:01] LABS: BACTERIA,URINE RARE /HPF; BILIRUBIN,URINE SMALL (NEGATIVE); EPITHELIAL CELLS,URINE FEW /LPF; RBC,URINE 0-5 /HPF (0-5); URINE UROBILINOGEN 0.2 mg/dL (0.2 - 1); WBC,URINE (MAN) 0-5 /HPF (0-5)
[2020-06-11] MEDS ORDERED: MORPHINE SULFATE INJ 4 MG/ML INJ 1ML IV STA (16:08)
[2020-06-11] MEDS ORDERED: ONDANSETRON HCL INJ 2MG/ML 2ML 2 MG/ML VIAL IV STA (16:08)
[2020-06-11] MEDS ORDERED: SODIUM CHLORIDE 0.9% 1000ML 1,000 ML IV STA (16:08)
[2020-06-11] MEDS ORDERED: PANTOPRAZOLE 40 MG 10ML VIAL IV STA (16:08)
[2020-06-11] MEDS ORDERED: PANTOPRAZOL 40MG/SOD CHL 0.9% 50 ML IV ONE (16:21)
[2020-06-11] MEDS ORDERED: ONDANSETRON HCL INJ 2MG/ML 2ML 2 MG/ML VIAL IV PRN (16:45)
[2020-06-11] MEDS ORDERED: MORPHINE SULFATE INJ 4 MG/ML INJ 1ML IV PRN ×2 (17:00→19:15)
--- NOTE | 2020-06-11 17:11 | Diagnostic Imaging Report ---
EXAMINATION: CHEST SINGLE (PORTABLE) INDICATION: Fever. COMPARISON: None FINDINGS: TUBES and LINES: None. LUNGS: Normal lung volumes. Hazy opacification of the bilateral lung bases. No consolidations. PLEURA: No pleural effusion or pneumothorax. HEART AND MEDIASTINUM: The cardiomediastinal silhouette is unremarkable. BONES AND SOFT TISSUES: No acute osseous lesion. Soft tissues are unremarkable. UPPER ABDOMEN: No free air under the diaphragm. IMPRESSION: Hazy opacification the bilateral lung bases which may represent atelectasis and/or developing multifocal pneumonia in the proper clinical context. Signed by: Van Laws MD on 06/11/2020 5:08 PM
--- NOTE | 2020-06-11 17:19 | Diagnostic Imaging Report ---
EXAM: CT Abdomen and Pelvis WITH contrast INDICATION: Fever of unknown origin. COMPARISON: None. TECHNIQUE: Abdomen and pelvis were scanned utilizing a multidetector helical scanner from the lung base to the pubic symphysis after administration of IV contrast. Coronal and sagittal reformations were obtained. Routine protocol was performed. Scan was performed when during portal venous phase. IV CONTRAST: 100 mL of Isovue 370 ORAL CONTRAST: None COMPLICATIONS: None RADIATION DOSE: Total DLP: 834.33 mGy*cm Estimated effective dose: (DLP x 0.015 x size factor) mSv CTDIvol has been reviewed. It is below the limits set by the Radiation Protocol Committee (RPC). Dose modulation, iterative reconstruction, and/or weight based adjustment of the mA/kV was utilized to reduce the radiation dose to as low as reasonably achievable. FINDINGS: LINES and TUBES: None. LOWER THORAX: Patchy airspace opacities in the right lung base compatible with multifocal pneumonia. The lower thorax otherwise normal. HEPATOBILIARY: No focal hepatic lesions. No biliary ductal dilation. GALLBLADDER: Status post cholecystectomy. SPLEEN: No splenomegaly. PANCREAS: No focal masses or ductal dilatation. ADRENALS: No adrenal nodules KIDNEYS/URETERS: Kidneys enhance symmetrically. No hydronephrosis. There is a multilobulated exophytic cyst measures approximately 4.7 x 3.2 cm in the upper pole of the right kidney. No stones. GI TRACT: There is a small hiatal hernia. No abnormal distention, wall thickening, or evidence of bowel obstruction. Appendix is normal. PELVIC ORGANS/BLADDER: Unremarkable. LYMPH NODES: No lymphadenopathy. VESSELS: Unremarkable. PERITONEUM / RETROPERITONEUM: No free air or fluid. BONES: Unremarkable. SOFT TISSUES: Unremarkable. IMPRESSION: 1. Patchy airspace opacities in the right lung base compatible with multifocal pneumonia. 2. No acute abdominopelvic abnormality identified. Signed by: Van Laws MD on 06/11/2020 5:16 PM
--- OUTSIDE RECORDS SUMMARY | 2020-06-11 17:21 | XMS REPORT | Continuity of Care Document ---
Author Author [facility] t Organization [facility] Address [address] [place] [address] Phone Unavailable Care Team Providers Care Screw Machine Tender Name Role Phone Asked, Pcp No PCP Unavailable Anna ARCOS Attphys Unavailable Killian Arteaga MD Anna ARCOS Admphys Unavailable Payers Payer Name Policy Type Policy Number Effective Date Expiration Date S [facility] DEPT OF AFFAIRSDEPT OF AFFAIRSxxxxxxxxxx2020-PresentMilitary xxxxxxxxxx 2020 00:00:00 Otis Palmer Problems This patient has no known problems. Allergies, Adverse Reactions, Alerts This patient has no known allergies or adverse reactions. Social History Social Habit Start Date Stop Date Quantity Comments Source Sex Assigned At Paujayant forresterirma Palmer Medications This patient has no known medications. [...] Procedure Date / Time Performed Performing Clinician Sour e CT ABDOMEN PELVIS WO CONTRAST 2020-06-09 14:47:50 Lupis Arteaga XR CHEST 1 VW PORTABLE 2020-06-09 13:11:15 Killian Arteaga ECG 12-LEAD 2020-06-09 12:59:12 Killian Arteaga Met hodmireille HC COMPLETE BLD COUNT W/AUTO DIFF 2020-06-09 12:45:00 Anna Arteaga PROTHROMBIN TIME WITH INR 2020-06-09 12:45:00 Killian Arteaga PARTIAL THROMBOPLASTIN TIME (PTT) 2020-06-09 12:45:00 Anna Arteaga TROPONIN 2020-06-09 12:45:00 Killian Arteaga Met hodmireille B NATRIURETIC PEPTIDE 2020-06-09 12:45:00 Killian Arteagat on [employer] LIPASE LEVEL 2020-06-09 12:45:00 Killian Arteaga Met dorian COMPREHENSIVE METABOLIC PANEL 2020-06-09 12:19:00 Lupis Arteaga ESTIMATED GFR 2020-06-09 12:19:00 Killian Arteaga Met dorian ECG ED PRELIMINARY INTERPRETATION 2020-06-09 12:07:40 Anna Arteaga Plan of Care Planned Activity Planned Date Details Comments Source Future Scheduled Test 2020-07-13 00:00:00 INFLUENZA VACCINE [code = INFLUENZA VACCINE] Otis Palmer Future Scheduled Test 1992 00:00:00 Screening for loreta gnant neoplasm of cervix (procedure) [code = 380472887] Otis womack Encounters Start Date/Time End Date/Time Encounter Type Admission Type Attendi [facility] Care Department Encounter ID Source 2020-06-09 00:00:00 2020-06-09 00:00:00 Emergency LUPIS ARTEAGA [facility] [id number] Otis Palmer Results Test Description Test Time Test Comments Results Result Comments Source CT ABDOMEN/PELVIS W 2020-06-11 17:10:00 [facility] [address] [address] Patient Name: MARE GRIFFIN MR #: [id number] : 1970 Age/Sex: 50/F Req #: [id number] Adm Physician: LEONARDO ARCOS MD Ordered by: AYAD GRESHAM DO Report #: [id number] Location: [facility] Room/Bed: [address] [address] Procedure: [id number] CT/CT ABDOMEN/PELVIS W Exam Date: 06/11/20 Exam Time: 1620 REPORT STATUS: Signed EXAM: CT Abdomen and Pelvis WITH contrast INDICATION: Fever of unknown origin. COMPARISON: None. TECHNIQUE: Abdomen and pelvis were scanned utilizing a multidetector helical scanner from the lung base to the pubic symphysis after administration of IV c ontrast. Coronal and sagittal reformations were obtained. Routine protocol was performed. Scan was performed when during portal venous phase. IV CONTRAST: 100 mL of Isovue 370 ORAL CONTRAST: None COMPLICATIONS: None RADIATION DOSE: Total DLP: 834.33 mGy*cm Estimated effective dose: (DLP x 0.015 x size factor) mSv CTDIvol has been reviewed. It is below the limits set by the Radiation Protocol Committee (RPC). Dose modulation, iterative reconstruction, and/or weight based adjustment of the mA/kV was utilized to reduce the radiation dose to as low as reasonably achievable. FINDINGS: LINES and TUBES: None. LOWER THORAX: Patchy airspace opacities in the right lung base compatible with multifocal pneumonia. The lower thorax otherwise normal. HEPATOBILIARY: No focal hepatic lesions. No biliary ductal dilation. GALLBLADDER: Status post cholecystectomy. SPLEEN: No splenomegaly. PANCREAS: No focal masses or ductal dilatation. ADRENALS: No adrenal nodules KIDNEYS/URETERS: Kidneys enhance symmetrically. No hydronephrosis. There is a multilobulated exophytic cyst measures approximately 4.7 x 3.2 cm in the upper pole of the right kidney. No stones. GI TRACT: There is a small hiatal hernia. No abnormal distention, wall thickening, or evidence of bowel obstruction. Appendix is normal. PELVIC ORGANS/BLADDER: Unremarkable. LYMPH NODES: No lymphadenopathy. VESSELS: Unremarkable. PERITONEUM / RETROPERITONEUM: No free air or fluid. BONES: Unremarkable. SOFT TISSUES: Unremarkable. IMPRESSION: 1. Patchy airspace opacities in the right lung base compatible with multifocal pneumonia. 2. No acute abdominopelvic abnormality identified. Signed by: Monty Gifford MD on 06/11/2020 5:16 PM Dictated By: MONTY GIFFORD MD 15 Transcribed By: JOSH on 06/11/201715 COPY TO: AYAD GRESHAM DO CHEST SINGLE (PORTABLE) 2020-06-11 16:50:00 [address] [address] Patient Name: MARE GRIFFIN MR #: [id number] : 1970 Age/Sex: 50/F Req #: [id number] Adm Physician: Ordered by: AYAD GRESHAM DO Report #: [id number] Location: ER Room/Bed: Procedure: [id number] DX/CHEST SINGLE (PORTABLE) Exam Date: 06/11/20 Exam Time: 1600 REPORT STATUS: Signed EXAMINATION: CHEST SINGLE (PORTABLE) INDICATION: Fever. COMPARISON: None FINDINGS: TUBES and LINES: None. LUNGS: Normal lung volumes. Hazy opacification of the bilateral lung bases. No consolidations. PLEURA: No pleural effusion or pneumothorax. HEART AND MEDIASTINUM: The cardiomediastinal silhouette is unremarkable. BONES AND SOFT TISSUES: No acute osseous lesion. Soft tissues are unremarkable. UPPER ABDOMEN: No free air under the diaphragm. IMPRESSION: Hazy opacification the bilateral lung bases which may represent atelectasis and/or developing multifocal pneumonia in the proper clinical context. Signed by: Monty Gifford MD on 06/11/2020 5:08 PM Dictated By: MONTY GIFFORD MD 07 Transcribed By: Suzan BARROW on 06/11/201707 COPY TO: AYAD GRESHAM DO ECG 12 lead 2020-06-09 20:16:38 Test Item Ventricular rate (test code = 253) 84 Atrial rate (test code = 255) 84 ND interval (test code = 266) 174 QRSD [...] sinus rhythm-N ormal ECG-No previous ECGs available- [place] [facility] Abdomen Pelvis Wo Yldsgnqi9829-62-35 14:56:14Hm Interface, Radiology Results 06/09/2020 2:59 PM [...] mass protocol CT can be obtained for confirmation.[facility]-2 [id number] MethodistB natriuretic giordpo9698-39-90 14:15:00* Test Item Value Reference Range Interpretation Comments BNP (test code = 77436-4) 13 pg/mL 0-100 [place] MethodistProthrombin time with VAQ5823-27-59 14:09:18* Test Item Value Reference Range Interpretation Comments Prothrombin time (test code = 5902-2) 15.0 11.5- 14.5 sec H INR (test code = 80272-5) 1.2 Th e International Normalized Ratio (INR) is a therapeutic monitoring tool for patients who are stable on oral anticoagulant therapy. An INR of 2.0-3.0 is suggested for deep vein thrombosis/pulmonary embolism. Lab Interpretation (test code = 34850-5) Abnormal [place] MethodistComprehensive metabolic hgcss7448-28-71 13:57:43* Test Item Value Reference Range Interpretation Comments Sodium (test code = 2951-2) 138 135- 148 mEq/L Potassium (test code = 2823-3) 4.0 3.5- 5.0 mEq/L Chloride (test code = 2075-0) 100 98- 112 mEq/L CO2 (test code = 8-9) 24 24- 31 mEq/L Anion gap (test code = 22358-1) 14@ANIO 7- 15 mEq/L BUN (test code = 3094-0) 9 mg/dL 6-20 Creatinine (test code = 2160-0) 0.97 mg/dL 0.5-0.9 H Glucose (test code = 2345-7) 90 mg/dL 65-99 Calcium (test code = 63089-5) 8.3 mg/dL 8.3-10.2 Protein (test code = 2885-2) 8.0 g/dL 6.3-8.3 -[place] 4.6- 7.0 g/dL1 week 4.4-7.6 g/dL7 months-1year 5.1-7.3 g/dL1-2 years 5.6-7.5 g/dL>3 years 6.0-8.0 g/eT83-655 6.3-8.3 g/dL Albumin (test code = 1751-7) 3.3 g/dL 3.5-5 L A/G ratio (test code = 1759-0) 0.7 0.7-3.8 Alkaline phosphatase (test code = 6768-6) 115 U/L 35-104 H AST (test code = 1920-8) 38 U/L 10-35 H ALT (test code = 1742-6) 23 U/L 5-50 Total bilirubin (test code = 1975-2) 0.4 mg/dL 0-1.2 Lab Interpretation (test code = 56256-8) Abnormal [facility] MethodistEstimated [id number] 13:57:43* Test Item Value Reference Range Interpretation Comments Estimated GFR (test code = 5488) 68 mL/min/1.73 m2 Catergory Units InterpretationG1 >=90 Normal or highG2 60-89 Mildly fsytxjaflE1j 45-59 Mildly to moderately njeuliifvU3o 30-44 Moderately to severely decreasedG4 15-29 Severely decreasedG5 <15 Kidney failureThe eGFR was calculated using the Chronic Kidney Disease Epidemiology Collaboration (CKD-EPI) equation. Interpretation is based on recommendations of the National Kidney Foundation-Kidney Disease Outcomes Quality Initiative (NKF-KDOQI) published in 2014. Otis KennyXhykokhsdYudlyvma5956-37-12 13:44:45* Test Item Value Reference Range Interpretation Comments Troponin (test code = 98680-3) <0.006 0-0.04 In patients suspected of having [...] OR decreased by less than 0.020 ng/mL [place] MethodistPartial thromboplastin time, cxqtreolb8276-25-41 13:43:27* Test Item Value Reference Range Interpretation Comments PTT (test code = 08105-1) 34.8 23.0- 36.0 sec PTT therapeutic range for unfractionated heparin is61.0-112.0 seconds which corresponds to Anti-Xa0.3-0.7 U/ml. [place] MethodistLipase ssdlh6336-06-17 13:31:26* Test Item Value Reference Range Interpretation Comments Lipase (test code = 3040-3) 21 U/L 13-60 [place] MethodistCBC with platelet and msnpqgkjxsdx2357-22-26 13:22:50* Test Item Value Reference Range Interpretation Comments WBC (test code = 02189-7) 4.14 4.50- 11.00 k/uL L RBC (test code = 26176-5) 4.36 m/uL 4.2-5.5 HGB (test code = 718-7) 10.8 g/dL 12-16 L HCT (test code = 4544-3) 34.4 % 37-47 L MCV (test code = 787-2) 78.9 fL 82-100 L MCH (test code = 785-6) 24.8 pg 27-34 L MCHC (test code = 786-4) 31.4 g/dL 31-37 RDW - SD (test code = 23954-5) 43.8 fL 37-55 MPV (test code = 90707-1) 9.7 fL 8.8-13.2 Platelet count (test code = 82043-8) 303 150- 400 k/uL Nucleated RBC (test code = 21946-5) 0.00 /100 WBC Neutrophils (test code = 43501-0) 72.5 % 39-69 H Lymphocytes (test code = 91318-0) 16.2 % 25-45 L Monocytes (test code = 50286-0) 10.9 % 0-10 H Eosinophils (test code = 55457-0) 0.0 % 0-5 Basophils (test code = 51025-7) 0.2 % 0-1 Immature granulocytes (test code = 83077-3) 0.2 % 0-1 "Immature granulocytes" (promyelocytes, myelocytes, metamyelocytes) Lab Interpretation (test code = 05052-1) Abnormal [place] MethodistXR Chest 1 Vw Gbdafmls0122-05-75 13:22:50Hm Interface, Radiology Results 06/09/2020 1:25 PM CDTEXAMINATION: XR CHEST 1 VW PORTABLECLINICAL HISTORY: 50 years Female chest painCOMPARISON: None.IMPRESSION:Lines and tubes: None.Heart and mediastinum: Cardiomediastinal silhouette is normal in contour.Lungs and pleura: There is no focal airspace dis ease, pleural effusion or pneumothorax.Bones: No acute abnormality.[facility]-[id number] and approved by chief radiology/fellow: Saúl Mahmood M.D.I, Kayla Mohr MD, personally reviewed the images and resident's/fellow's findings and agree with the final report.[facility] Preliminary Interpretation - Not an Hfugo3960-84-95 12:07:40SKillian villeda MD 06/10/2020 6:58 PME ED Preliminary Interpretation - Not an OrderPerformed by: Killian Arteaga MDAuthorized by: Killian Arteaga MD ECG reviewed by ED Physician in the absence of a demand generation manager: yes Interpretation: Interpretation: normal Rate: ECG rate: 84 ECG rate assessment: normal Rhythm: Rhythm: sinus rhythm Ectopy: Ectopy: none QRS: QRS axis: Normal QRS intervals: NormalConduction: Conduction: normal ST segments: ST segments: NormalT waves: T waves: normal Otis Palmer
--- OUTSIDE RECORDS SUMMARY | 2020-06-11 17:21 | XMS REPORT | Clinical Summary ---
Author Author [facility] Organization [facility] Address Unknown Phone Unavailable Care Team Providers Care Bar Assistant Name Role Phone Asked, No Pcp PCP [...] protocol CT can be obtained for confirmation. [facility]-[id number] Procedure Note Hm Interface, Radiology Results Incoming [...] protocol CT can be obtained for confirmation. [facility]-[id number] Performing Organization Address City/State/Zipcode Ph one Number [facility] [address] [place] [address] * XR Chest 1 Vw Portable (06/09/2020 [...] effusion or pneumothorax. Bones: No acute abnormality. [facility]-[id number] Dictated and approved by radiology resi dent/fellow: [...] effusion or pneumothorax. Bones: No acute abnormality. [facility]-[id number] Dictated and approved by vice president of brand management/fellow: Saúl Mahmood M.D. I, Kayla Mohr MD, personally reviewed the images and resident's/fellow's findings and agree with the final report. Performing Organization Address City/[facility] Ph one Number [facility] [address] [place] [address] * ECG 12 lead (06/09/2020 12:59 PM CDT) Ventricular 84 [facility] rate Atrial rate 84 [facility] MD interval 174 [facility] QRSD interval 84 [...] Address City/State/Zipcode Ph one Number [facility] [address] [place] [id number] * Troponin (06/09/2020 12:45 PM CDT) Pathologist [facility] Troponin <0.006 0.000 - 0.040 ng/mL [place] Comment: WORSHIP In patients suspected of HOSPITAL having a [...] 0.020 ng/mL Specimen Blood Performing Organization Address [facility] Ph one Number [facility] DEPARTMENT OF [address] [place] [address] PATHOLOGY AND GENOMIC MEDICINE [place] [facility] [address] [place] [address] HOSPITAL * Partial thromboplastin time, activated (06/09/2020 12:45 PM CDT) Pathologist [facility] PTT 34.8 23.0 - 36.0 sec [place] Comment: WORSHIP PTT therapeutic range for HOSPITAL unfractionated heparin is 61.0-112.0 seconds which corresponds to Anti-Xa 0.3-0.7 U/ml. Specimen Blood Performing Organization Address [facility] Ph one Number [facility] DEPARTMENT OF [address] [place] [address] PATHOLOGY AND GENOMIC MEDICINE [address] * Prothrombin time with INR (06/09/2020 12:45 PM CDT) [facility] Prothrombin 15.0 (H) 11.5 - 14.5 sec [facility] INR 1.2 [place] Comment: WORSHIP The International Normalized HOSPITAL Ratio (INR) is a therapeutic monitoring tool for patients who are stable on oral anticoagulant therapy. An INR of 2.0-3.0 is suggested for deep vein thrombosis/pulmonary embolism. Specimen Blood Performing Organization Address City/State/Zipcode Ph one Number [facility] DEPARTMENT OF [address] [place] [address] PATHOLOGY AND GENOMIC MEDICINE [address] * CBC with platelet and differential (06/09/2020 12:45 PM CDT) [facility] WBC 4.14 (L) 4.50 - 11.00 k/uL [facility] RBC 4.36 4.20 - 5.50 m/uL [facility] HGB 10.8 (L) 12.0 - 16.0 g/dL [facility] HCT 34.4 (L) 37.0 - 47.0 % [facility] MCV 78.9 (L) 82.0 - 100.0 fL [facility] MCH 24.8 (L) 27.0 - 34.0 pg [facility] MCHC 31.4 31.0 - 37.0 g/dL [facility] RDW - SD 43.8 37.0 - 55.0 fL [facility] MPV 9.7 8.8 - 13.2 fL [facility] Platelet count 303 150 - 400 k/uL [facility] Nucleated RBC 0.00 /100 WBC [facility] Neutrophils 72.5 (H) 39.0 - 69.0 % [facility] Lymphocytes 16.2 (L) 25.0 - 45.0 % [facility] Monocytes 10.9 (H) 0.0 - 10.0 % [facility] Eosinophils 0.0 0.0 - 5.0 % [facility] Basophils 0.2 0.0 - 1.0 % [facility] Immature 0.2Comment: "Immature 0.0 - 1.0 % [place] granulocytes granulocytes" (promyelocytes, METHOD IST myelocytes, metamyelocytes) HOSPITAL Specimen Blood Performing Organization Address [facility] one Number [facility] DEPARTMENT OF [address] [place] [address] PATHOLOGY AND GENOMIC MEDICINE [address] * B natriuretic peptide (06/09/2020 12:45 PM CDT) Pathologist [facility] BNP 13 0 - 100 pg/mL [facility] Specimen Blood Performing Organization Address [facility] one Number [facility] DEPARTMENT OF [address] [place] [address] PATHOLOGY AND GENOMIC MEDICINE [address] * Lipase level (06/09/2020 12:45 PM CDT) Pathologist [facility] Lipase 21 13 - 60 U/L [facility] Specimen Performing Organization Address [facility] one Number [facility] [address] PATHOLOGY AND GENOMIC MEDICINE [address] * Estimated GFR (06/09/2020 12:19 PM CDT) Pathologist [facility] Estimated GFR 68 mL/min/1.73 m2 [place] Comment: [facility] Interpretation G1 >=90 Normal or high G2 [...] published in 2014. Specimen Performing Organization Address [facility] one Number [facility] DEPARTMENT OF [address] [place] [address] PATHOLOGY AND GENOMIC MEDICINE [address] * Comprehensive metabolic panel (06/09/2020 12:19 PM CDT) [facility] Sodium 138 135 - 148 mEq/L [facility] Potassium 4.0 3.5 - 5.0 mEq/L [facility] Chloride 100 98 - 112 mEq/L [facility] CO2 24 24 - 31 mEq/L [facility] Anion gap 14@ANIO 7 - 15 mEq/L [facility] BUN 9 6 - 20 mg/dL [facility] Creatinine 0.97 (H) 0.50 - 0.90 mg/dL [facility] Glucose 90 65 - 99 mg/dL [facility] Calcium 8.3 8.3 - 10.2 mg/dL [facility] Protein 8.0 6.3 - 8.3 g/dL [place] Comment: [facility] 4.6-7.0 g/dL 1 week 4.4-7.6 g/dL 7 months-1year 5.1-7.3 g/dL 1-2 years 5.6-7.5 g/dL >3 years 6.0-8.0 g/dL 18-150 6.3-8.3 g/dL Albumin 3.3 (L) 3.5 - 5.0 g/dL [facility] A/G ratio 0.7 0.7 - 3.8 [facility] Alkaline 115 (H) 35 - 104 U/L [place] phosphatase [facility] AST 38 (H) 10 - 35 U/L [facility] ALT 23 5 - 50 U/L [facility] Total bilirubin 0.4 0.0 - 1.2 mg/dL [facility] Specimen Blood Performing Organization Address City/State/[facility] Ph one Number [facility] DEPARTMENT OF [address] [place] [address] PATHOLOGY AND GENOMIC MEDICINE [address] * ECG ED Preliminary Interpretation - Not an Order (06/09/2020 12:07 PM CDT) Narrative Performed At Killian Arteaga MD 06/10/2020 6:58 PM ECG ED Preliminary Interpretation - Not an Order Performed by: Killian Arteaga MD Authorized by: Killian Arteaga MD ECG reviewed by ED Physician in the abs ence of a support engineer: yes Interpretation: Interpretation: normal Rate: ECG [...] OF xxxxxxxxxx 020- Present AFFAIRS [address] [facility] (Home) [place], [place] [address] Advance Directives For more information, please contact: [phone] Patient Dump Operator Explanation Type Date Recorded Advance Directives, Living Will and Medical Power of Customer Service Attendant
[2020-06-11] MEDS ORDERED: SODIUM CHLORIDE 0.9% 50ML 50 ML ONE (17:39)
[2020-06-11] MEDS ORDERED: IOPAMIDOL 370 MG/ML 200 ML INFUS..BTL INJ ONE (17:40)
[2020-06-11] MEDS ORDERED: CHOLESTYRAMINE 4 GM PACKET PO PRN (19:45)
[2020-06-11] MEDS ORDERED: LOPERAMIDE HCL 2 MG CAP PO PRN (19:45)
[2020-06-11 20:00] VITALS: BP 105/69
[2020-06-11 20:30] VITALS: BP 105/69
[2020-06-11 20:42] VITALS: BP 105/69
[2020-06-11] MEDS: CEFEPIME 1GM/NS 0.9% 50 ML 50 ML IV SCH (21:19)
[2020-06-11] MEDS: SUCRALFATE 1 GM/10 ML SUSP NG SCH (21:19)
[2020-06-11] MEDS: D5.45%NS/KCL 20MEQ 1,000 ML IV SCH (21:19)
[2020-06-11] MEDS ORDERED: PEPCID20 MG PO (21:29)
[2020-06-11] MEDS: ONDANSETRON HCL INJ 2MG/ML 2ML 2 MG/ML VIAL IV PRN (21:54)
--- NOTE | 2020-06-11 22:29 | History and Physical ---
CHIEF COMPLAINT: Abdominal pain, nausea, vomiting, diarrhea. HISTORY OF PRESENT ILLNESS: A 50-year-old female, morbidly obese, has a history of H. pylori. She reports diagnosed several weeks ago, in which she underwent an EGD about 3 weeks ago at the [place] [facility]. She reports to our hospital system with complaints of abdominal pain, nausea, vomiting, and diarrhea. She was recently at [facility] [place] [place] in the ER was discharged as she was complaining of nausea and vomiting. She now reports to our facility with similar symptoms. She denies any fever, cough, congestion. Imaging studies consistent with multifocal pneumonia. She reports also having some diarrhea as well as the abdominal pain, nausea, and vomiting. She reports that it has been ongoing since the coronavirus in early December. She reports she has not gotten any better and recently had an EGD that she states that it was just a hiatal hernia. The patient was seen and evaluated at bedside in the emergency room. She is currently doing well with no other issues at this time. REVIEW OF SYSTEMS: Pertinent positives: Nausea, vomiting, abdominal pain, diarrhea. The rest of the 14-point review of systems have been reviewed with the patient and are negative. ALLERGIES: NO KNOWN DRUG ALLERGIES. HOME MEDICATIONS: She was taking Prevpac for H. pylori. PAST MEDICAL HISTORY: Reports having diarrhea chronically, hiatal hernia, H. pylori. PAST SURGICAL HISTORY: Recent EGD 3 weeks ago at the [place] [facility]. PAST FAMILY HISTORY: Reports none. SOCIAL HISTORY: No drugs. No alcohol. Does not smoke. Good social support. She is . LABORATORY FINDINGS: Show white count 3.1, hemoglobin 11, hematocrit 36, platelets of 294. Chemistry, sodium 138, potassium 3.8, chloride 99, bicarb 26, anion gap of 16. BUN is 8, creatinine is 0.8, glucose 85, calcium is 8, total bilirubin is 0.4. AST 31, ALT 20, alkaline phosphatase 111. CK is 138. Troponins are negative. Albumin is 3.4, lipase is 13. Urinalysis is negative. Urine drug screen negative. Serology coronavirus pending. MICROBIOLOGY: None. IMAGING STUDIES: CT abdomen and pelvis with IV contrast shows patchy airspace opacities in the right lung base compatible with multifocal pneumonia. No acute abdominopelvic abnormality is identified. Chest x-ray also comments hazy opacities in the bilateral lung bases, which may represent atelectasis and/or developing multifocal pneumonia in a proper clinical context. PHYSICAL EXAMINATION: VITAL SIGNS: Temperature 98.9, pulse 71, respiratory rate is 18, blood pressure 120/77, pulse ox 100% on room air. GENERAL: Not in acute distress. Alert and oriented x3. Cooperative on examination. HEENT: Head is normocephalic and atraumatic. Eyes; pupils are equal, round, and reactive to light bilaterally. Extraocular movements are intact bilaterally. Throat, no evidence of any erythema or exudates in the posterior pharynx. Has poor dentition. NECK: Supple. Good range of motion. PULMONARY: Clear to auscultation bilaterally. No wheezing, rales, or rhonchi. No crackles appreciated. CARDIOVASCULAR: Positive S1 and S2. No murmurs, rubs, or gallops appreciated. ABDOMEN: She was tender to palpation in the epigastric area. Bowel sounds were present. No rebound. No guarding. MUSCULOSKELETAL: Strength is 5/5 throughout. NEUROLOGIC: Alert and oriented x3. SKIN: Intact. Warm to touch. Good cap refill. PSYCHIATRIC: Normal affect and mood. IMPRESSION: 1. Abdominal pain with associated nausea, vomiting, and diarrhea. 2. Morbidly obese. 3. History of Helicobacter pylori and was on treatment. 4. Multifocal pneumonia? Coronavirus? PLAN: At this time as for her abdominal pain issues, GI has been consulted. She is on antinausea medication, pain control, IV fluids, and clear liquid diet. We will also put her on Protonix and Carafate. We will request labs from the [place] for the EGD report. As for her diarrhea, she will have some loperamide as well as cholestyramine. We will get a C. diff toxin and stool cultures and GI has been consulted. As for her pneumonia, she denies any cough, congestion, or any fever, but it was picked up on the CT scan of the abdomen and pelvis as well as a chest x-ray. I will go ahead and treat her for underlying pneumonia with IV antibiotic therapy. Her coronavirus is pending. She denies having any coronavirus or any family members with coronavirus. This could be remnants of coronavirus from before, but I am not sure at this time. We will put her on Lovenox for DVT prophylaxis. Put on a clear liquid diet. Get morning labs. [employer]: GI. MD AYAZ Sousa/DEBORAH /[id number]
[2020-06-11 23:28] LABS: FERRITIN 45.09 ng/mL (4.63-204.00)
[2020-06-12] VITALS (8 sets, daily range): BP systolic 90–144; BP diastolic 50–82
[2020-06-12] MEDS: D5.45%NS/KCL 20MEQ 1,000 ML IV SCH ×3 (00:45→17:33)
[2020-06-12] MEDS: METOCLOPRAMIDE HCL 10 MG/2ML VIAL IV SCH ×5 (05:21→22:54)
[2020-06-12 05:30] LABS: BASOPHILS % 0.9 % (0.0-1.0); HEMATOCRIT 35.7 % (34.2-44.1); HEMOGLOBIN 10.7 g/dL (12.0-16.0); LYMPHOCYTES # (AUTO) 1.1 (1.0-3.2); MEAN CORPUSCULAR HEMOGLOBIN 24.5 pg (28-32); MEAN CORPUSCULAR VOLUME 81.9 fL (81-99); MONOCYTES # (AUTO) 0.4 (0.2-0.8); MONOCYTES % 15.8 % (4.4-11.3); NEUTROPHILS # (AUTO) 0.7 (2.1-6.9); NEUTROPHILS % 32.8 % (38.7-80.0); PLATELET COUNT 256 x10e3/uL (140-360); RED BLOOD COUNT 4.36 x10e6/uL (3.6-5.1); RED CELL DISTRIBUTION WIDTH 15.1 % (11.7-14.4)
[2020-06-12 05:58] LABS: ALANINE AMINOTRANSFERASE 42 IU/L (0-55); ALBUMIN 2.9 g/dL (3.5-5.0); ALBUMIN/GLOBULIN RATIO 0.8 (0.8-2.0); ALKALINE PHOSPHATASE 120 IU/L (40-150); ANION GAP 14.6 mmol/L (8-16); BLOOD UREA NITROGEN 5 mg/dL (7-26); BUN/CREATININE RATIO 6 (6-25); CALCIUM 7.5 mg/dL (8.4-10.2); CARBON DIOXIDE 23 mmol/L (22-29); CHLORIDE 102 mmol/L (98-107); CREATININE, SERUM 0.77 mg/dL (0.57-1.11); EST GLOMERULAR FILTRATION RATE > 60 ML/MIN (60-); GLUCOSE 107 mg/dL (74-118); POTASSIUM 3.6 mmol/L (3.5-5.1); SODIUM 136 mmol/L (136-145)
[2020-06-12] MEDS: SUCRALFATE 1 GM/10 ML SUSP NG SCH ×4 (07:30→20:52)
[2020-06-12] MEDS: CEFEPIME 1GM/NS 0.9% 50 ML 50 ML IV SCH ×2 (08:47→19:36)
[2020-06-12] MEDS: PANTOPRAZOLE 40 MG 10ML VIAL IV SCH ×2 (08:47→17:33)
--- NOTE | 2020-06-12 16:32 | Operative Report ---
DATE OF PROCEDURE: 06/12/2020 SURGEON: Francisco Bond MD PROCEDURE: EGD with biopsies. INDICATIONS FOR EGD: Upper abdominal pain, nausea. MEDICATIONS: The patient was done under MAC, please see anesthesiologist's note. PROCEDURE IN DETAIL: With the patient in the left lateral decubitus position, a flexible fiberoptic Olympus gastroscope was introduced into the esophagus under direct visualization without any difficulty. There was some patchy erythema noted in distal esophagus. Minute tongues of velvety red mucosa were noted to extend proximally from the GE junction, biopsies were obtained to rule out Ochoa. The scope was then advanced with ease into the stomach, mucosa overlying the antrum and the body revealed some diffuse erythema and moderate edema, and biopsies were obtained and sent to stain for H. pylori. Pylorus was of normal contour and shape, was intubated with ease and the scope was advanced all the way to the second portion of the duodenum. The scope was then withdrawn slowly and biopsies were obtained from the proximal second portion and duodenal bulb to rule out sprue. The scope was then withdrawn back into the stomach and retroflexed, mucosa overlying the fundus and the cardia appeared to be within normal limits. The scope was then straightened out, it was subsequently withdrawn, and the patient tolerated the procedure well. IMPRESSION: 1. Distal esophagitis, mild. 2. Rule out Ochoa esophagus. 3. Gastritis, biopsied, biopsies sent to stain for Helicobacter pylori. 4. Rule out sprue. PLAN: Follow up histology. Continue PPI therapy. Continue Reglan. Initiate full liquid diet. Francisco Bond MD [facility] [place] [place] /[id number] cc: Joan Tolentino MD
[2020-06-12] MEDS ORDERED: ENOXAPARIN SOD INJ 40 MG/0.4 ML SYR SC SCH ×2 (17:00)
[2020-06-12] MEDS ORDERED: PROPOFOL IV EMULSION 10 MG/ML 20 ML VIAL ONE (17:43)
[2020-06-12] MEDS: ONDANSETRON HCL INJ 2MG/ML 2ML 2 MG/ML VIAL IV PRN (19:36)
[2020-06-12] MEDS: PANTOPRAZOLE INJ 40 MG in SODIUM CHLORIDE 0.9% 50ML 50 ML IV SCH (22:46)
--- NOTE | 2020-06-12 23:04 | Progress Note ---
DATE: 06/12/2020 Medicine Progress Note SUBJECTIVE: The patient underwent EGD and found to have gastritis. No overnight events. PHYSICAL EXAMINATION: VITAL SIGNS: Temperature is 98, pulse 70, respiratory rate is 20, blood pressure 108/60, and pulse ox 100% on room air. GENERAL: Not in acute distress. Alert and oriented x3. Cooperative on examination. HEENT: Head; normocephalic, atraumatic. Eyes; pupils are equal, round, and reactive to light bilaterally. Extraocular movements intact bilaterally. Throat; no evidence of erythema or exudates in the posterior pharynx. Has poor dentition. NECK: Supple. Good range of motion. PULMONARY: Clear to auscultation bilaterally. No wheezing, no rales, no rhonchi, no crackles appreciated. CARDIOVASCULAR: Positive S1 and S2. No murmurs, rubs, or gallops appreciated. ABDOMEN: Soft, nondistended, and nontender to palpation. Bowel sounds present. MUSCULOSKELETAL: Strength is 5/5 throughout. No evidence of any muscle deficits on examination. SKIN: Intact. Warm to touch. Good cap refill. PSYCHIATRIC: Normal affect and mood. EXTREMITIES: No edema. Good range of motion throughout. LABORATORY FINDINGS: Show white count 2.2, hemoglobin 10.7, hematocrit is 35.7, and platelets of 256. Chemistry; sodium 136, potassium 3.6, chloride 102, bicarb 22, anion gap of 14, BUN is 7, and creatinine is 0.77. Iron saturation is 5%. Troponins were all negative. Albumin was 2.99. Lipase earlier was 13. Vitamin B12 was 1396. Urinalysis negative. Urine drug screen negative. Coronavirus is pending. MICROBIOLOGY: None. IMAGING STUDIES: Reviewed. IMPRESSION: 1. Abdominal pain with nausea, vomiting, and diarrhea, status post EGD that showed gastritis and distal esophagitis. 2. History of Helicobacter pylori, on questionable treatment. 3. Multifocal pneumonia, questionable coronavirus? PLAN: At this time, EGD report noted gastritis esophagitis. She is on Carafate and PPIs. Get a.m. labs. She is also on loperamide and cholestyramine for underlying diarrhea. Discussed plan of care with GI. Stool cultures are pending is collected. Continue with IV Reglan. As for the question with pneumonia, she is on IV antibiotic therapy, which we will go ahead and continue for now. She was on Lovenox for DVT prophylaxis as well. Otherwise, we will continue to monitor very closely. MD AYAZ Sousa/MODL /[id number]
[2020-06-13] VITALS: BP 138/82
[2020-06-13] MEDS: D5.45%NS/KCL 20MEQ 1,000 ML IV SCH ×4 (00:45→09:00)
[2020-06-13] MEDS: ONDANSETRON HCL INJ 2MG/ML 2ML 2 MG/ML VIAL IV PRN ×3 (01:38→15:45)
[2020-06-13] MEDS: PANTOPRAZOLE INJ 40 MG in SODIUM CHLORIDE 0.9% 50ML 50 ML IV SCH ×4 (03:25→13:49)
[2020-06-13 04:00] VITALS: BP 112/61
[2020-06-13 05:28] LABS: HEMATOCRIT 35.5 % (34.2-44.1); HEMOGLOBIN 11.1 g/dL (12.0-16.0); LYMPHOCYTES # (AUTO) 0.8 (1.0-3.2); LYMPHOCYTES % 21.1 % (18.0-39.1); MEAN CORPUSCULAR HGB CONC 31.3 g/dL (31-35); MEAN CORPUSCULAR VOLUME 76.7 fL (81-99); MONOCYTES # (AUTO) 0.4 (0.2-0.8); MONOCYTES % 9.5 % (4.4-11.3); NEUTROPHILS # (AUTO) 2.8 (2.1-6.9); NEUTROPHILS % 69.1 % (38.7-80.0); PLATELET COUNT 286 x10e3/uL (140-360); RED BLOOD COUNT 4.63 x10e6/uL (3.6-5.1); RED CELL DISTRIBUTION WIDTH 14.9 % (11.7-14.4)
[2020-06-13] MEDS: METOCLOPRAMIDE HCL 10 MG/2ML VIAL IV SCH ×2 (05:35→11:53)
[2020-06-13 05:58] LABS: ANION GAP 16.7 mmol/L (8-16); BLOOD UREA NITROGEN < 5 mg/dL (7-26); CALCIUM 8.3 mg/dL (8.4-10.2); CARBON DIOXIDE 22 mmol/L (22-29); CHLORIDE 101 mmol/L (98-107); CREATININE, SERUM 0.73 mg/dL (0.57-1.11); EST GLOMERULAR FILTRATION RATE > 60 ML/MIN (60-); GLUCOSE 129 mg/dL (74-118); POTASSIUM 3.7 mmol/L (3.5-5.1); SODIUM 136 mmol/L (136-145)
[2020-06-13 06:13] LABS: BUN/CREATININE RATIO 7 (6-25)
[2020-06-13] MEDS: SUCRALFATE 1 GM/10 ML SUSP NG SCH ×4 (07:30→11:30)
[2020-06-13] MEDS: CEFEPIME 1GM/NS 0.9% 50 ML 50 ML IV SCH ×2 (08:00→08:30)
[2020-06-13 08:11] VITALS: BP 106/69
[2020-06-13] MEDS ORDERED: PANTOPRAZOLE 40 MG 10ML VIAL ONE ×3 (08:14→14:00)
[2020-06-13 09:00] VITALS: BP 106/69
[2020-06-13] MEDS: PANTOPRAZOLE 40 MG 10ML VIAL IV SCH (09:00)
[2020-06-13 11:35] VITALS: BP 125/77
[2020-06-13] MEDS: IRON SUCROSE 100 MG in SODIUM CHLORIDE 0.9% 100 ML 100 ML IV SCH ×2 (12:00→12:30)
[2020-06-13] MEDS ORDERED: SODIUM CHLORIDE 0.9% 50ML 50 ML ONE (14:05)
[2020-06-13] MEDS ORDERED: PROMETHAZINE HCL 25 MG TAB PO PRN (15:15)
--- NOTE | 2020-06-13 16:31 | Diagnostic Imaging Report ---
EXAM: US ABDOMEN COMPLETE DATE: 06/13/2020 3:15 PM INDICATION: ^NAUSEA COMPARISON: CT dated 06/11/2020 TECHNIQUE: Transverse and longitudinal esteban scale and color doppler sonographic images of the abdomen were obtained. FINDINGS: LIVER 12.0 cm in the right midclavicular line. Normal echogenicity of the liver with normal contour, no masses. SPLEEN 11.0 cm in maximum diameter. Normal echogenicity, no masses. GALLBLADDER Surgically absent BILE DUCTS No intra nor extra-hepatic biliary dilation. Common bile duct measures 0.3cm PANCREAS: Visualized portions are normal. RIGHT KIDNEY: 11.1 cm Echogenicity: Normal Collecting System: No hydronephrosis Stones: None Cyst/Mass: At the mid pole there is a lobular anechoic lesion measuring 3.9 x 2.7 x 2.4 cm. No significant internal vascularity is noted. LEFT KIDNEY: 10.7 cm Echogenicity: Normal Collecting System: No hydronephrosis Stones: None Cyst/Mass: None VESSELS: Aorta: Visualized portions are within normal size limits Inferior Vena Cava: Visualized portions are normal Main Portal Vein: 1.0 cm, normal size with hepatopetal flow. FREE FLUID: None IMPRESSION: 1. Postsurgical change of cholecystectomy. Negative for biliary dilatation. 2. Lobular anechoic cystic lesion of the right midpole without suspicious features. Signed by: Troy Viveros MD on 06/13/2020 4:27 PM
--- NOTE | 2020-06-13 21:04 | History and Physical ---
CHIEF COMPLAINT: gastroenteritis, COVID-19 pneumonia. HISTORY OF PRESENT ILLNESS: This is a very pleasant 50-year-old female, who has history of obesity. Over the last 5 days or so she has been having fever and chills on the . She went to the [place] system, where she was checked for COVID, but the result came today was positive. She came to our emergency room earlier today with nausea, vomiting, and diarrhea. Her chest x-ray was consistent with multifocal pneumonia, but she denies any shortness of breath. She denies any cough, fever, or chills. She has nausea, vomiting, and some abdominal discomfort and diarrhea. Her main complaint now with the nausea. The patient was admitted because the test came back positive here. PAST MEDICAL HISTORY: She denies. PAST SURGICAL HISTORY: She denies. ALLERGIES: NKA. SOCIAL HISTORY: There is no smoking, drug abuse, or alcohol abuse. She is . FAMILY HISTORY: Otherwise unremarkable. REVIEW OF SYSTEMS: At the present time beside the nausea, she denies any, HEENT negative, pulmonary negative, cardiac negative. All seems to be within normal limit at present time. PHYSICAL EXAMINATION: GENERAL: She is currently alert and oriented, does not seem to be in acute distress. VITAL SIGNS: Stable, currently afebrile. HEENT: She is not icteric. NECK: Supple. CHEST: Clear bilateral. HEART: S1 and S2. ABDOMEN: Soft. Bowel sounds present. EXTREMITIES: No edema. SKIN: No rash. LABORATORY DATA: Reviewed, chart reviewed. White count 3.99, hemoglobin 11.1. COVID was positive. Drug screen was negative. Sodium 133, potassium 3.7, and creatinine 0.73. IMPRESSION: COVID-19, gastroenteritis, pneumonia, but it seems that she is not hypoxemic. I will just give her supportive care, Phenergan as needed, Pepto-Bismol as needed. Observe the patient for 24 to 48 hours. If patient remains stable, could be discharged home with Phenergan and supportive care. MD MARIA DOLORES Johnson/DEBORAH /[id number]
== END 2020-06-13 17:07 | disposition left against medical advice (07) | DRG 177 ==
LOC: ER 15:52 → ERHOLD 16:37 → MED/SURG 20:16 → MED/SURG3 06-13 06:34 → OBSVTOIN 06-13 10:31
PROVIDERS: ADMIT Internal Medicine; ATTEND Internal Medicine
PROC: 0DB78ZX Excision of Stomach, Pylorus, Via Natural or Artificial Opening Endoscopic, Diagnostic (ICD-10-PCS; principal; 2020-06-13)
DX: U07.1 COVID-19 (principal); J12.89 Other viral pneumonia; K29.70 Gastritis, unspecified, without bleeding; K20.9 Esophagitis, unspecified; E66.01 Morbid (severe) obesity due to excess calories; Z68.36 Body mass index [BMI] 36.0-36.9, adult; K52.9 Noninfective gastroenteritis and colitis, unspecified
CPT/HCPCS: 36415; 43239; 71045; 74177; 76700; 80048; 80053; 80307; 81001; 81025; 82550; 82553; 82607; 82728; 82746; 82948; 83540; 83690; 84466; 84484; 85025; 85045; 86140; 87045; 87493; 88305; 88312; 88342; 99285; G0378; J0692; J1650; J1756; J2270; J2405; J2765; J7030; Q9967; U0002